=== PATIENT | male | born 1965 | race African-American/Black ===

== ENCOUNTER 2025-02-17 10:01 | Emergency (ER) | payer OTHER ==
[~2025-02-17] VITALS: Ht 165.1 cm; Wt 68.9 kg
[2025-02-17 10:18] VITALS: BP 136/85; PULSE 97; O2SAT 95
--- NOTE | 2025-02-17 11:52 | Physician Documentation ---
History of Present Illness ~ Chief Complaint: Back Pain Stated Complaint: BACK PAIN Time Seen by MD: 10:54 HPI Patient is seen today with complaints of pain in his coccyx. Patient states he has been bending down a lot claiming and working. Patient states this is likely acute on chronic pain in his coccyx. Patient has been working with the [employer] and has had recent imaging and labs done. Patient states his labs that were drawn showed no sign of any liver or renal disease. Patient does admit to history of diabetes. Patient denies any chest pain or shortness of breath or abdominal pain or changes in bowel or bladder habits. Patient denies any saddle a nesthesia. Medication Reconciliation Allergies: Coded Allergies: No Known Allergies (Unverified , 02/17/25) Review of Systems Constitutional: Denies: chills, fever, weakness Eyes: Denies: pain, blurred vision ENT: Denies: ear pain, nose pain, throat pain, mouth pain Respiratory: Denies: cough, shortness of breath Cardiovascular: Denies: chest pain, palpitations Gastrointestinal: Denies: abdominal pain, nausea, vomiting Genitourinary: Denies: burning, dysuria Male Genitalia: Denies: penile discharge, testicular pain Neurological: Denies: headache, dizziness Musculoskeletal: Denies: pain, swelling Integumentary: Denies: rash, lesions Allergic/Immunologic: Denies: hives, itching Hematologic/Lymphatic: Denies: no symptoms reported Psychiatric: Denies: depression, anxiety Physical Exam Physical Exam Vital Signs: Temperature: 98.6, Source: Oral, Heart Rate: 97, Respiratory Rate: 18, BP: 136/85, Pulse Oximetry: 95, Weight: 68.900 Physical Exam General: Awake and Alert, no acute distress. HEENT: Conjunctiva pink, Sclera clear, Mucus Membranes moist. Neck: Supple without masses and tenderness. Resp: Unlabored. Lungs clear to auscultation bilaterally. Heart: Regular Rate and rhythm, normal S1 and S2 without murmur, rub or gallop. Musculoskeletal: Patient on exam does have tenderness to palpation of the coccyx. Patient has near full range of motion of the lumbar spine in all planes of motion. Patient is neurovascularly intact distally. Motor function intact distally. Extremities: No cyanosis,clubbing or edema. Skin: Warm and Dry. Progress Results/Orders Results/Orders Vital Signs 02/17/25 10:18 Temp 98.6 Pulse 97 Resp 18 B/P (MAP) 136/85 Pulse Ox 95 Medical Decision Making Findings Patient is seen today with complaints of pain in his coccyx. Patient states he has been bending down a lot claiming and working. Patient states this is likely acute on chronic pain in his coccyx. Patient has been working with the [employer] and has had recent imaging and labs done. Patient states his labs that were drawn showed no sign of any liver or renal disease. Patient does admit to history of diabetes. Patient denies any chest pain or shortness of breath or abdominal pain or changes in bowel or bladder habits. Patient denies any saddle anesthesia. Patient was given dose of Toradol 30 mg IM in the ED today. Patient declined x- rays or blood work today. Patient will follow up with primary care for referral to physical therapy for further eval and treatment. Patient will return to ED with any worsening, concerning or changing symptoms. Departure Disposition: HOME / SELF CARE / HOMELESS Impression: Primary Impression: Coccygeal pain Condition: Improved Discharge Instructions: Chronic Back Pain Additional Instructions: Patient was given dose of Toradol 30 mg IM in the ED today. Patient declined x- rays or blood work today. Patient will follow up with primary care for referral to physical therapy for further eval and treatment. Patient will return to ED with any worsening, concerning or changing symptoms. Referrals: NO PRIMARY CARE PROVIDER (PCP) Prescriptions Meloxicam (Meloxicam) 15 Mg Tablet 1 TAB PO DAILY for 30 Days, #30 TAB 0 Refills Prov: CHAVEZ LONDON 02/17/25 Signature Scribe Signature: No scribe Attestation: No scribe CHAVEZ LONDON February 17, 2025 11:52
[2025-02-17] MEDS ORDERED: MELO-102 PO (11:57)
[2025-02-17 13:08] VITALS: RESP 16
[2025-02-17] MEDS: ketorolac trometh 30MG/ML vial 30 MG/ML VIAL IM STA (13:08)
[2025-02-17 13:12] VITALS: TEMP 98.6
== END 2025-02-17 13:13 | disposition home or self-care (01) ==
LOC: ER 10:04
DX: M53.3 Sacrococcygeal disorders, not elsewhere classified (principal); E11.9 Type 2 diabetes mellitus without complications
CPT/HCPCS: 96372; 99283; J1885